=== PATIENT | female | born 1960 | race African-American/Black ===

== ENCOUNTER 2016-12-23 10:31 | Emergency (ER) | payer OTHER ==
[~2016-12-23] VITALS: Ht 160 cm; Wt 113.4 kg
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
[2016-12-23] MEDS ORDERED: TRAMADOL HCL 50 MG TABLET PO ONE (11:30)
--- NOTE | 2016-12-23 11:46 | NUR ---
Medication given tolerated well no adverse reaction at this time.
[2016-12-23] MEDS ORDERED: TRAMADOL HCL 50 MG TABLET ONE (11:57)
--- NOTE | 2016-12-23 12:11 | NUR ---
Pt states that her pain was better initally but then states that her pain is worse 09/30 but that she is just emotional right now and just needs to calm down.
--- NOTE | 2016-12-23 13:13 | NUR ---
Home with [facility] and review rx with pt as well pt states that she understands.
--- NOTE | 2016-12-23 13:20 | NUR ---
Pt states that her family member needs to come and get her and her and it will be about an hour or more before she gets here pt waiting in room 3 for family to get her.
[2016-12-23] MEDS ORDERED: HYDROCODONE/APAP 5-325MG TABLET PO ONE (13:30)
--- NOTE | 2016-12-23 13:32 | NUR ---
[place] given tolerated well no adverse reaction at this time.
[2016-12-23] MEDS ORDERED: HYDROCODONE/APAP 5-325MG TABLET ONE (13:45)
--- NOTE | 2016-12-23 15:05 | NUR ---
Family member here to take pt home in stable condition.
--- NOTE | 2016-12-23 15:06 | NUR ---
Upon letting pt and family members know that all documents were complete and that pt was dc 'd to home pt states," you don't need to martinez me". Pt was informed that she could stay as long as she would like and pt states," No I don't want to stay here". Pt was very rude.
[2016-12-23 15:10] VITALS: BP 150/72
== END 2016-12-23 15:14 | disposition home or self-care (01) ==
LOC: ER 10:33
DX: S39.012A Strain of muscle, fascia and tendon of lower back, initial encounter (principal); S16.1XXA Strain of muscle, fascia and tendon at neck level, initial encounter; G89.29 Other chronic pain; I10 Essential (primary) hypertension; E11.9 Type 2 diabetes mellitus without complications; V89.2XXA Person injured in unspecified motor-vehicle accident, traffic, initial encounter; Y93.89 Activity, other specified; Y92.413 State road as the place of occurrence of the external cause; Y99.8 Other external cause status
CPT/HCPCS: 99283; A4663